=== PATIENT | male | born 1955 | race Asian ===

== ENCOUNTER 2016-12-13 21:33 | Inpatient (IN) | payer OTHER ==
[~2016-12-13] VITALS: Ht 203.2 cm; Wt 137.9 kg
[2016-12-13 22:24] LABS: PLATELET COUNT 93 x10^3mcL (130-400); RED CELL DISTRIBUTION WIDTH 17.1 % (11.5-14.5)
[2016-12-13 22:31] LABS: BILIRUBIN TOTAL 0.9 mg/dL (0.20-1.00); CALCIUM 8.2 mg/dL (8.5-10.1); CARBON DIOXIDE 19.7 mmol/L (21-32); MAGNESIUM 1.8 mg/dL (1.8-2.4); POTASSIUM SERUM 5.5 mmol/L (3.5-5.1); TOTAL PROTEIN, SERUM 7.8 g/dL (6.4-8.2)
[2016-12-13 22:33] LABS: CREATININE SERUM 6.3 mg/dL (0.7-1.3)
[2016-12-13 22:48] LABS: BAND NEUTROPHIL 4 % (0-10); METAMYELOCTE 3 % (0-2); MONOCYTE 5 % (0-7); SEGMENTED NEUTROPHILS 76 % (37-75)
[2016-12-13 22:50] LABS: rbc morphology (normal/abnorm) ABNORMAL (NORMAL)
[2016-12-13 23:10] LABS: CK-MB 29.3 ng/mL (0-3.6)
[2016-12-13] MEDS ORDERED: COZAAR100 MG PO (23:22)
[2016-12-13] MEDS ORDERED: BENAZEPRIL HYDR40 M1 PO (23:23)
[2016-12-13] MEDS ORDERED: LANTUS SOLOS100 U/M1 SQ (23:23)
[2016-12-13] MEDS ORDERED: ATENOLOL25 MG PO (23:23)
[2016-12-13] MEDS ORDERED: ADULT LOW DOSE81 MG PO (23:24)
[2016-12-13] MEDS ORDERED: SIMVASTATIN40 M1 PO (23:24)
[2016-12-13] MEDS ORDERED: METFORMIN ER500 M1 PO (23:24)
[2016-12-13] MEDS ORDERED: FLO4 PO (23:24)
[2016-12-14] VITALS (13 sets, daily range): BP systolic 59–160; BP diastolic 38–82
[2016-12-14 01:58] LABS: CHOLESTEROL/HDL RATIO 7.1; PHOSPHOROUS 3.8 mg/dL (2.5-4.9)
[2016-12-14 02:08] LABS: FREE T4 1.47 ng/dL (0.76-1.46); FREE THYROXINE INDEX 2.6 ug/dL (1.4-4.5); T4(THYROXINE) 7.7 ug/dL (4.7-13.3)
[2016-12-14 02:30] LABS: T3 TOTAL 0.58 ng/mL
[2016-12-14 05:51] LABS: PLATELET COUNT 95 x10^3mcL (130-400); RED CELL DISTRIBUTION WIDTH 17.2 % (11.5-14.5)
[2016-12-14 05:59] LABS: CALCIUM 7.6 mg/dL (8.5-10.1); CARBON DIOXIDE 16.6 mmol/L (21-32)
[2016-12-14 06:01] LABS: POTASSIUM SERUM 6.1 mmol/L (3.5-5.1)
[2016-12-14 06:02] LABS: CREATININE SERUM 6.3 mg/dL (0.7-1.3)
[2016-12-14 06:13] LABS: BAND NEUTROPHIL 11 % (0-10); METAMYELOCTE 3 % (0-2); MONOCYTE 7 % (0-7); MYELOCYTE 1 % (0-2); SEGMENTED NEUTROPHILS 74 % (37-75)
[2016-12-14 06:15] LABS: rbc morphology (normal/abnorm) ABNORMAL (NORMAL)
[2016-12-14 06:40] LABS: UA SPECIFIC GRAVITY 1.025 (1.005-1.035); microscopic required? YES; urine erythrocyte 3+ (NEGATIVE)
[2016-12-14 12:59] LABS: CALCIUM 7.1 mg/dL (8.5-10.1); CARBON DIOXIDE 17.6 mmol/L (21-32)
[2016-12-14 21:13] LABS: CALCIUM 7.4 mg/dL (8.5-10.1); CARBON DIOXIDE 25.7 mmol/L (21-32); POTASSIUM SERUM 3.4 mmol/L (3.5-5.1)
[2016-12-14 21:17] LABS: CREATININE SERUM 4.8 mg/dL (0.7-1.3)
[2016-12-15] VITALS (17 sets, daily range): BP systolic 81–139; BP diastolic 54–80
[2016-12-15 05:56] LABS: PLATELET COUNT 93 x10^3mcL (130-400)
[2016-12-15 06:00] LABS: CALCIUM 7.1 mg/dL (8.5-10.1); CARBON DIOXIDE 25.8 mmol/L (21-32); MAGNESIUM 1.5 mg/dL (1.8-2.4); PHOSPHOROUS 4.9 mg/dL (2.5-4.9); POTASSIUM SERUM 3.6 mmol/L (3.5-5.1)
[2016-12-15 06:03] LABS: CREATININE SERUM 5.5 mg/dL (0.7-1.3)
[2016-12-15 06:19] LABS: BAND NEUTROPHIL 3 % (0-10); METAMYELOCTE 3 % (0-2); MONOCYTE 4 % (0-7); SEGMENTED NEUTROPHILS 75 % (37-75)
[2016-12-15 06:21] LABS: rbc morphology (normal/abnorm) ABNORMAL (NORMAL)
[2016-12-16] VITALS (18 sets, daily range): BP systolic 101–145; BP diastolic 60–79
[2016-12-16 05:35] LABS: CALCIUM 7.4 mg/dL (8.5-10.1); CARBON DIOXIDE 27.5 mmol/L (21-32); CREATININE SERUM 3.8 mg/dL (0.7-1.3); PHOSPHOROUS 4.1 mg/dL (2.5-4.9); POTASSIUM SERUM 3.3 mmol/L (3.5-5.1)
[2016-12-16 05:37] LABS: BASOPHIL % 0.1 % (0-2)
[2016-12-16 05:43] LABS: PLATELET COUNT 108 x10^3mcL (130-400); RED CELL DISTRIBUTION WIDTH 16.8 % (11.5-14.5)
[2016-12-17] VITALS (17 sets, daily range): BP systolic 75–175; BP diastolic 42–110
[2016-12-17 05:36] LABS: BASOPHIL % 0.1 % (0-2); PLATELET COUNT 160 x10^3mcL (130-400)
[2016-12-17 05:40] LABS: RED CELL DISTRIBUTION WIDTH 16.4 % (11.5-14.5)
[2016-12-17 06:05] LABS: CALCIUM 7.5 mg/dL (8.5-10.1); CARBON DIOXIDE 26.8 mmol/L (21-32); CREATININE SERUM 3.3 mg/dL (0.7-1.3); MAGNESIUM 1.9 mg/dL (1.8-2.4); PHOSPHOROUS 3.6 mg/dL (2.5-4.9); POTASSIUM SERUM 3.3 mmol/L (3.5-5.1)
[2016-12-18] VITALS (19 sets, daily range): BP systolic 108–167; BP diastolic 66–93
[2016-12-18 05:42] LABS: PLATELET COUNT 175 x10^3mcL (130-400)
[2016-12-18 05:45] LABS: RED CELL DISTRIBUTION WIDTH 15.9 % (11.5-14.5)
[2016-12-18 06:01] LABS: CALCIUM 7.2 mg/dL (8.5-10.1); CARBON DIOXIDE 26.9 mmol/L (21-32); MAGNESIUM 1.8 mg/dL (1.8-2.4); POTASSIUM SERUM 3.9 mmol/L (3.5-5.1)
[2016-12-18 06:30] LABS: ATYPICAL LYMPH 1 %; BAND NEUTROPHIL 3 % (0-10); METAMYELOCTE 2 % (0-2); MONOCYTE 5 % (0-7); SEGMENTED NEUTROPHILS 85 % (37-75)
[2016-12-18 06:31] LABS: PLATELET MORPHOLOGY LARGE PLATELET SEEN; rbc morphology (normal/abnorm) ABNORMAL (NORMAL)
[2016-12-19] VITALS (17 sets, daily range): BP systolic 113–177; BP diastolic 65–99
[2016-12-19 05:53] LABS: PLATELET COUNT 199 x10^3mcL (130-400)
[2016-12-19 05:57] LABS: BASOPHIL % 0 % (0-2); RED CELL DISTRIBUTION WIDTH 17.1 % (11.5-14.5)
[2016-12-19 06:03] LABS: CALCIUM 6.7 mg/dL (8.5-10.1); CARBON DIOXIDE 27.1 mmol/L (21-32); MAGNESIUM 1.9 mg/dL (1.8-2.4); PHOSPHOROUS 3.3 mg/dL (2.5-4.9); POTASSIUM SERUM 4.1 mmol/L (3.5-5.1)
[2016-12-20] VITALS (18 sets, daily range): BP systolic 122–169; BP diastolic 62–99
[2016-12-20 05:39] LABS: CALCIUM 7.3 mg/dL (8.5-10.1); CARBON DIOXIDE 27.5 mmol/L (21-32); CREATININE SERUM 2.8 mg/dL (0.7-1.3); PHOSPHOROUS 3.1 mg/dL (2.5-4.9); POTASSIUM SERUM 4.1 mmol/L (3.5-5.1)
[2016-12-20 05:40] LABS: PLATELET COUNT 235 x10^3mcL (130-400)
[2016-12-20 05:56] LABS: RED CELL DISTRIBUTION WIDTH 17.6 % (11.5-14.5)
[2016-12-20 06:28] LABS: BAND NEUTROPHIL 3 % (0-10); METAMYELOCTE 2 % (0-2); MONOCYTE 7 % (0-7); MYELOCYTE 2 % (0-2); SEGMENTED NEUTROPHILS 78 % (37-75); rbc morphology (normal/abnorm) ABNORMAL (NORMAL)
[2016-12-20 06:29] LABS: PLATELET MORPHOLOGY LARGE PLATELET SEEN
[2016-12-21] VITALS (17 sets, daily range): BP systolic 138–185; BP diastolic 64–97
[2016-12-21 05:30] LABS: PLATELET COUNT 277 x10^3mcL (130-400)
[2016-12-21 05:31] LABS: RED CELL DISTRIBUTION WIDTH 17.1 % (11.5-14.5)
[2016-12-21 05:49] LABS: CALCIUM 7.8 mg/dL (8.5-10.1); CARBON DIOXIDE 27.7 mmol/L (21-32); CREATININE SERUM 2.4 mg/dL (0.7-1.3); MAGNESIUM 1.9 mg/dL (1.8-2.4); PHOSPHOROUS 3.8 mg/dL (2.5-4.9); POTASSIUM SERUM 4.6 mmol/L (3.5-5.1)
[2016-12-21 10:33] LABS: BAND NEUTROPHIL 4 % (0-10); SEGMENTED NEUTROPHILS 76 % (37-75)
[2016-12-21 10:34] LABS: METAMYELOCTE 2 % (0-2); MONOCYTE 7 % (0-7); MYELOCYTE 1 % (0-2)
[2016-12-21 10:35] LABS: PLATELET MORPHOLOGY PLATELETS NORMAL; rbc morphology (normal/abnorm) ABNORMAL (NORMAL)
[2016-12-22] VITALS (16 sets, daily range): BP systolic 150–194; BP diastolic 57–92
[2016-12-22 06:29] LABS: PLATELET COUNT 259 x10^3mcL (130-400)
[2016-12-22 06:30] LABS: BASOPHIL % 0 % (0-2); RED CELL DISTRIBUTION WIDTH 16.8 % (11.5-14.5)
[2016-12-22 06:53] LABS: CALCIUM 7.7 mg/dL (8.5-10.1); CARBON DIOXIDE 27.6 mmol/L (21-32); MAGNESIUM 1.9 mg/dL (1.8-2.4); PHOSPHOROUS 2.5 mg/dL (2.5-4.9); POTASSIUM SERUM 4.1 mmol/L (3.5-5.1)
[2016-12-23] VITALS (15 sets, daily range): BP systolic 153–186; BP diastolic 66–89
[2016-12-23 05:50] LABS: BASOPHIL % 0.4 % (0-2); PLATELET COUNT 293 x10^3mcL (130-400)
[2016-12-23 06:11] LABS: CALCIUM 7.8 mg/dL (8.5-10.1); CARBON DIOXIDE 30.1 mmol/L (21-32); CREATININE SERUM 1.8 mg/dL (0.7-1.3); MAGNESIUM 1.8 mg/dL (1.8-2.4); PHOSPHOROUS 2.6 mg/dL (2.5-4.9)
[2016-12-24] VITALS (15 sets, daily range): BP systolic 127–201; BP diastolic 74–101
[2016-12-24 05:37] LABS: BASOPHIL % 0.2 % (0-2); PLATELET COUNT 309 x10^3mcL (130-400)
[2016-12-24 05:42] LABS: RED CELL DISTRIBUTION WIDTH 16.9 % (11.5-14.5)
[2016-12-24 05:47] LABS: CALCIUM 7.8 mg/dL (8.5-10.1); CARBON DIOXIDE 32.3 mmol/L (21-32); CREATININE SERUM 1.6 mg/dL (0.7-1.3); MAGNESIUM 1.7 mg/dL (1.8-2.4); PHOSPHOROUS 2.8 mg/dL (2.5-4.9); POTASSIUM SERUM 3.9 mmol/L (3.5-5.1)
[2016-12-25] VITALS (16 sets, daily range): BP systolic 94–176; BP diastolic 30–91; Ht 203.2 cm; Wt 137.9 kg
[2016-12-25 06:08] LABS: CALCIUM 7.6 mg/dL (8.5-10.1); CARBON DIOXIDE 33.8 mmol/L (21-32); CREATININE SERUM 1.5 mg/dL (0.7-1.3); MAGNESIUM 1.7 mg/dL (1.8-2.4); PHOSPHOROUS 3.1 mg/dL (2.5-4.9); POTASSIUM SERUM 3.6 mmol/L (3.5-5.1)
[2016-12-25 06:10] LABS: BASOPHIL % 0.2 % (0-2); PLATELET COUNT 315 x10^3mcL (130-400)
[2016-12-25 06:13] LABS: RED CELL DISTRIBUTION WIDTH 17.3 % (11.5-14.5)
[2016-12-26] VITALS (9 sets, daily range): BP systolic 136–188; BP diastolic 60–91
[2016-12-26 05:27] LABS: BASOPHIL % 0.3 % (0-2); PLATELET COUNT 349 x10^3mcL (130-400)
[2016-12-26 05:29] LABS: RED CELL DISTRIBUTION WIDTH 16.5 % (11.5-14.5)
[2016-12-26 05:35] LABS: CALCIUM 7.8 mg/dL (8.5-10.1); CARBON DIOXIDE 33.9 mmol/L (21-32); CREATININE SERUM 1.5 mg/dL (0.7-1.3); MAGNESIUM 1.6 mg/dL (1.8-2.4); PHOSPHOROUS 2.9 mg/dL (2.5-4.9); POTASSIUM SERUM 3.3 mmol/L (3.5-5.1)
[2016-12-26] MEDS ORDERED: MEROPENEM-500 MG/50 IV (09:33)
[2016-12-26] MEDS ORDERED: IPRATROPIUM BROM3 M2 HHN ×2 (09:34→09:35)
[2016-12-26] MEDS ORDERED: LAC NG (09:34)
[2016-12-26] MEDS ORDERED: HEP5I SC (09:35)
[2016-12-26] MEDS ORDERED: CLOPIDOGREL75 M1 PO (09:36)
[2016-12-26] MEDS ORDERED: APR25 PO (09:37)
[2016-12-26] MEDS ORDERED: APR25 NG (09:40)
[2016-12-26] MEDS ORDERED: ISO10 NG (09:41)
[2016-12-26] MEDS ORDERED: PLE5 PO (09:41)
[2016-12-26] MEDS ORDERED: DEC4I INH (09:42)
[2016-12-26] MEDS ORDERED: L20I IV (09:42)
[2016-12-26] MEDS ORDERED: PROT40I IV (09:42)
[2016-12-26] MEDS ORDERED: LEVEMIR100 U/M1 SQ (09:43)
== END 2016-12-26 12:00 | disposition short-term general hospital (02) | DRG 4 ==
LOC: ED 21:33 → IC 23:15 → DU 23:15 → IC 12-14 03:20
PROVIDERS: Emergency Medicine; Family Medicine; Internal Medicine; ADMIT Family Medicine
PROC: 5A1955Z Respiratory Ventilation, Greater than 96 Consecutive Hours (ICD-10-PCS; 2016-12-14)
PROC: 0BH17EZ Insertion of Endotracheal Airway into Trachea, Via Natural or Artificial Opening (ICD-10-PCS; 2016-12-14)
PROC: 05HM33Z Insertion of Infusion Device into Right Internal Jugular Vein, Percutaneous Approach (ICD-10-PCS; 2016-12-14)
PROC: B543ZZA Ultrasonography of Right Jugular Veins, Guidance (ICD-10-PCS; 2016-12-14)
PROC: 05HN33Z Insertion of Infusion Device into Left Internal Jugular Vein, Percutaneous Approach (ICD-10-PCS; 2016-12-14)
PROC: B544ZZA Ultrasonography of Left Jugular Veins, Guidance (ICD-10-PCS; 2016-12-14)
PROC: 0B110F4 Bypass Trachea to Cutaneous with Tracheostomy Device, Open Approach (ICD-10-PCS; principal; 2016-12-18)
PROC: 0BC78ZZ Extirpation of Matter from Left Main Bronchus, Via Natural or Artificial Opening Endoscopic (ICD-10-PCS; 2016-12-25)
PROC: 0BC38ZZ Extirpation of Matter from Right Main Bronchus, Via Natural or Artificial Opening Endoscopic (ICD-10-PCS; 2016-12-25)
DX: A41.9 Sepsis, unspecified organism (principal); J96.00 Acute respiratory failure, unspecified whether with hypoxia or hypercapnia; I21.4 Non-ST elevation (NSTEMI) myocardial infarction; I50.41 Acute combined systolic (congestive) and diastolic (congestive) heart failure; R65.21 Severe sepsis with septic shock; J69.0 Pneumonitis due to inhalation of food and vomit; E43 Unspecified severe protein-calorie malnutrition; N17.0 Acute kidney failure with tubular necrosis; N13.8 Other obstructive and reflux uropathy; E87.1 Hypo-osmolality and hyponatremia; N39.0 Urinary tract infection, site not specified; I42.0 Dilated cardiomyopathy; T17.590A Other foreign object in bronchus causing asphyxiation, initial encounter; E11.51 Type 2 diabetes mellitus with diabetic peripheral angiopathy without gangrene; I27.2 Other secondary pulmonary hypertension; E87.6 Hypokalemia; R00.1 Bradycardia, unspecified; I44.1 Atrioventricular block, second degree; E66.8 Other obesity; Z90.5 Acquired absence of kidney; Z68.30 Body mass index [BMI] 30.0-30.9, adult; Z85.528 Personal history of other malignant neoplasm of kidney; X58.XXXA Exposure to other specified factors, initial encounter; Y93.89 Activity, other specified; Y92.018 Other place in single-family (private) house as the place of occurrence of the external cause
CPT/HCPCS: 31645; 36556; 36600; 78598; 82962; 83880; 84439; 85378; 97110-GP; 97116-GP; 97530-GP; A4628; A9540; C9113; J0171; J0461; J0696; J1100; J1642; J1644; J1815; J1940; J2060; J2185; J2250; J2270; J2370; J2405; J2543; J2704; J3010; J3475; J3480; J3490; J7030; J7040; J7050; J7620; Q0092